=== PATIENT | male | born 1960 | race Caucasian/White ===

== ENCOUNTER 2024-08-15 13:47 | Emergency (ER) | payer BC, SELFPAY ==
[2024-08-15 13:59] VITALS: BP 139/67
[2024-08-15 15:16] VITALS: BMI 30.4
--- NOTE | 2024-08-15 15:37 | ED.SKININJ ---
HPI-Injury
General
Chief Complaint: Bite
Source: patient
Time Seen by Provider: 08/15/24 15:17
History of Present Illness-Injury
Initial Injury comments:
64-year-old male with past medical history of hypertension, hyperlipidemia, prediabetes presenting to the emergency department for evaluation after he was bit on the left lower leg by a neighbors dog sustaining multiple small puncture wounds.
was able to verify that the dog did have his rabies vaccinations. Patient's tetanus vaccine is up-to-date. No other injuries were sustained. Patient does note some mild discomfort to the left lower leg but no other injuries were sustained.
Past History
Past History
ED Past Medical History: HTN, Hypercholesterolemia, NIDDM and Other
ED Past Surgical History: Appendectomy and Orthopedic
Social History
Tobacco: Non-smoker
Alcohol: Daily
Drug: None
Personal:
Living: with family
Review of Systems
Review of Systems
All Other Systems: ROS reviewed and negative except as documented in HPI and ROS
Phy Exam
Physical Exam
Physical Exam:
GENERAL: Alert , in no apparent distress
EYE: conjunctiva clear
Head: Normocephalic atraumatic
NECK: Supple,
ENT: mmm.
LUNGS: no acute respiratory distress
NEUROLOGICAL: Alert and oriented
SKIN: Warm and dry, multiple small puncture wounds to the left lower extremity each measuring less than 1 cm in size. Small skin abrasions also noted around the puncture wounds. Mild soft tissue swelling
MUSCULOSKELETAL: well perfused.
PSYCH: Normal and appropriate interaction.
Scores
Heart Failure Risk
Heart Failure Risk Score: Not Applicable
Heart Score for Chest Pain Patients
STEMI patient?: Not applicable
Withdrawal Assessment of Alcohol
Withdrawal Assessment Completed?: Not applicable
Course
Orders/Labs/Results
Orders:
Orders
08/15/24 15:36
Wound Dressing- Treatment ONCE
Location of Wound: left lower leg
Amoxicillin 875 mg/Clav 125 mg [Augmentin 875 mg/125 mg] 1 tablet PO NOW STA
Vital Signs
Initial and Last Documented VS:
Initial Vital Signs
Temp Pulse Resp BP Pulse Ox
97.4 F 94 18 139/67 96
08/15/24 13:59 08/15/24 13:59 08/15/24 13:59 08/15/24 13:59 08/15/24 13:59
Last Documented Vital Signs
Temp Pulse Resp BP Pulse Ox
97.4 F 67 20 156/80 96
08/15/24 13:59 08/15/24 16:13 08/15/24 16:13 08/15/24 16:13 08/15/24 13:59
MDM/Problems Addressed
Differential Diagnosis Includes:
Superficial puncture wounds from dog bite, no current signs to suggest compartment syndrome, too early for any infectious etiologies
MDM/Problems Addressed:
64-year-old male presenting to the ER for evaluation following a dog bite to the left lower extremity. Wounds were irrigated with copious normal saline. Patient was started on Augmentin for infection prevention. Patient advised on return
precautions to the ER as well as wound care. Otherwise stable for discharge home.
*Pulse Oximetry
Patient hypoxic: no
*Critical Care Note
Total Time (30-74mins, 75-104mins- exclusive of procedures): Not Applicable
ED Attending Note
-
Portions of this chart may have been created with voice recognition software.� Occasional wrong word or��sound alike� substitutions may have occurred due to the inherent limitations of voice recognition software.
Discharge Plan
Departure
Patient Disposition: Home (Routine Discharge)
Date of Disposition: 08/15/24
Time of Disposition: 15:37
Patient with high blood pressure during this ER visit?: Yes
Discharge Problem:
Dog bite, Puncture wound of left lower leg
Instructions: Animal Bites (DC)
Prescriptions:
New
amoxicillin-pot clavulanate 875-125 mg tablet
1 tab PO BID Qty: 13 0RF
No Action
olmesartan 20 MG tablet
40 mg PO DAILY
vitamins A,C,[id number] [PreserVision AREDS] 1 CAP capsule
2 cap PO BID
rabies vacc,human diploid (PF) [Imovax Rabies Vaccine (PF)] 1 ML recon soln
1 ml IM . DIRECTED Qty: 3 0RF
Rx Instructions:
See Rabies Vaccine Post Exposure Prophylaxis Instruction Sheet for Dosing Instructions
Interventions
Interventions:
*Risk Screen - Suicide Last Done: 08/15/24 13:59
*General Assessment Last Done: 08/15/24 13:59
*Neglect/Abuse Screening Last Done: 08/15/24 13:59
*Nursing Disposition Last Done: 08/15/24 16:15
ED-Skin Assessment Last Done: 08/15/24 15:44
Discharge Date and Time
Discharge Date/Time: 08/15/24 16:15
Print Language: POLISH
[2024-08-15] MEDS: AUGMENTIN 875 MG/125 MG 1 TABLET PO (15:46)
[2024-08-15 16:13] VITALS: BP 156/80
== END 2024-08-15 16:15 | disposition home or self-care (01) ==
LOC: EMR 13:47
PROVIDERS: EMERGENCY PHYSICIAN Emergency Medicine; FAMILY PHYSICIAN Hospitalist
DX: S81.832A Puncture wound without foreign body, left lower leg, initial encounter (principal); W54.0XXA Bitten by dog, initial encounter; I10 Essential (primary) hypertension; E78.00 Pure hypercholesterolemia, unspecified; E11.9 Type 2 diabetes mellitus without complications
CPT/HCPCS: 99283